=== PATIENT | male | born 1965 | race Caucasian/White ===

== ENCOUNTER 2016-06-13 15:22 | Inpatient (IN) | payer OTHER ==
[~2016-06-13] VITALS: Ht 182.9 cm; Wt 69.0 kg
[2016-06-13] MEDS ORDERED: GUAIFENESIN AN118 ML GT (17:12)
[2016-06-13] MEDS ORDERED: LIDOCAINE AND P1 CRE TOP (17:12)
[2016-06-13] MEDS ORDERED: ACETAMINOP160 MG/54 PO (17:12)
[2016-06-13] MEDS ORDERED: DULCOLAX10 M1 RC (17:13)
[2016-06-13] MEDS ORDERED: MOM PO (17:13)
[2016-06-13] MEDS ORDERED: FLEET ENEMA135 ML RC (17:13)
[2016-06-13] MEDS ORDERED: WEL75 PO (17:14)
[2016-06-13] MEDS ORDERED: NOR10 PO (17:14)
[2016-06-13] MEDS ORDERED: LISINOPRIL40 MG PO (17:14)
[2016-06-13] MEDS ORDERED: AMIODARONE HCL200 MG GT (17:15)
[2016-06-13] MEDS ORDERED: TOPROL XL25 MG PO (17:15)
[2016-06-13 17:17] LABS: microscopic required? YES; urine erythrocyte 1+ (NEGATIVE)
[2016-06-13 17:17] LABS: PLATELET COUNT 262 x10^3mcL (130-400)
[2016-06-13] MEDS ORDERED: METHOCARBAMOL750 MG GT (17:19)
[2016-06-13] MEDS ORDERED: ATORVASTATIN CA40 M1 PO (17:19)
[2016-06-13 17:20] LABS: RED CELL DISTRIBUTION WIDTH 16.6 % (11.5-14.5)
[2016-06-13 17:21] LABS: CALCIUM 8.7 mg/dL (8.5-10.1); CARBON DIOXIDE 31.9 mmol/L (21-32); CHLORIDE SERUM 96 mmol/L (98-107); CREATININE SERUM 0.8 mg/dL (0.7-1.3); GFR1 > 60 mL/min; GLUCOSE SERUM 220 mg/dL (74-106); POTASSIUM SERUM 4.3 mmol/L (3.5-5.1); SODIUM SERUM 137 mmol/L (136-145)
[2016-06-13 17:27] LABS: ALKALINE PHOSPHATASE 161 U/L (46-116); ALT/SGPT 27 U/L (16-63); AST/SGOT 33 U/L (15-37); BILIRUBIN TOTAL 0.2 mg/dL (0.20-1.00); TOTAL PROTEIN, SERUM 6.6 g/dL (6.4-8.2)
[2016-06-13 17:30] LABS: ALBUMIN 2.2 g/dL (3.4-5.0); CHOLESTEROL 108 mg/dL (<200); HDL CHOLESTEROL 30 mg/dL (40-60)
[2016-06-13 17:44] LABS: BAND NEUTROPHIL 10 % (0-10); METAMYELOCTE 1 % (0-2); MONOCYTE 2 % (0-7); SEGMENTED NEUTROPHILS 86 % (37-75)
[2016-06-13 17:47] LABS: rbc morphology (normal/abnorm) ABNORMAL (NORMAL)
[2016-06-13 17:48] LABS: PLATELET MORPHOLOGY FEW LARGE PLATELETS
[2016-06-13 19:16] VITALS: BP 109/74
[2016-06-13 19:20] VITALS: Ht 182.9 cm; Wt 69.0 kg
[2016-06-13 19:44] LABS: T3 TOTAL 0.44 ng/mL
[2016-06-13 19:46] LABS: FREE T4 0.83 ng/dL (0.76-1.46); FREE THYROXINE INDEX 2.4 ug/dL (1.4-4.5); T4(THYROXINE) 6.6 ug/dL (4.7-13.3)
[2016-06-13 19:59] LABS: CHOLESTEROL/HDL RATIO 3.6
[2016-06-13 21:36] VITALS: BP 113/76
[2016-06-14 00:36] VITALS: BP 112/75
[2016-06-14 06:08] VITALS: BP 119/71
[2016-06-14 06:53] LABS: PLATELET COUNT 237 x10^3mcL (130-400)
[2016-06-14 07:03] LABS: BASOPHIL % 0 % (0-2); RED CELL DISTRIBUTION WIDTH 15.8 % (11.5-14.5)
[2016-06-14 07:06] LABS: CALCIUM 8.6 mg/dL (8.5-10.1); CARBON DIOXIDE 32.2 mmol/L (21-32); CHLORIDE SERUM 102 mmol/L (98-107); CREATININE SERUM 0.6 mg/dL (0.7-1.3); GFR1 > 60 mL/min; GLUCOSE SERUM 110 mg/dL (74-106); MAGNESIUM 1.8 mg/dL (1.8-2.4); PHOSPHOROUS 3.8 mg/dL (2.5-4.9); POTASSIUM SERUM 3.6 mmol/L (3.5-5.1); SODIUM SERUM 138 mmol/L (136-145)
[2016-06-14 10:16] VITALS: BP 106/72
[2016-06-14 13:00] VITALS: BP 121/82
[2016-06-14 18:27] VITALS: BP 108/74
[2016-06-14 21:33] VITALS: BP 132/80
[2016-06-15 05:54] VITALS: BP 115/75
[2016-06-15 06:17] LABS: BASOPHIL % 0.2 % (0-2); PLATELET COUNT 201 x10^3mcL (130-400)
[2016-06-15 06:23] LABS: CALCIUM 8.2 mg/dL (8.5-10.1); CARBON DIOXIDE 32.3 mmol/L (21-32); CHLORIDE SERUM 104 mmol/L (98-107); CREATININE SERUM 0.5 mg/dL (0.7-1.3); GFR1 > 60 mL/min; GLUCOSE SERUM 141 mg/dL (74-106); MAGNESIUM 1.6 mg/dL (1.8-2.4); POTASSIUM SERUM 3.6 mmol/L (3.5-5.1); SODIUM SERUM 138 mmol/L (136-145)
[2016-06-15 06:43] LABS: RED CELL DISTRIBUTION WIDTH 15.9 % (11.5-14.5)
[2016-06-15 10:39] VITALS: BP 137/84
[2016-06-15 15:21] VITALS: BP 133/85
[2016-06-15 18:27] VITALS: BP 135/87
[2016-06-15 18:29] VITALS: BP 135/87
[2016-06-15 22:19] VITALS: BP 133/86
[2016-06-16 06:03] LABS: BASOPHIL % 0.3 % (0-2); PLATELET COUNT 219 x10^3mcL (130-400)
[2016-06-16 06:33] VITALS: BP 133/86
[2016-06-16 06:33] LABS: RED CELL DISTRIBUTION WIDTH 15.7 % (11.5-14.5)
[2016-06-16 06:39] LABS: CALCIUM 8.3 mg/dL (8.5-10.1); CARBON DIOXIDE 29.2 mmol/L (21-32); CHLORIDE SERUM 99 mmol/L (98-107); CREATININE SERUM 0.5 mg/dL (0.7-1.3); GFR1 > 60 mL/min; GLUCOSE SERUM 133 mg/dL (74-106); MAGNESIUM 1.6 mg/dL (1.8-2.4); PHOSPHOROUS 3.4 mg/dL (2.5-4.9); POTASSIUM SERUM 3.6 mmol/L (3.5-5.1); SODIUM SERUM 133 mmol/L (136-145)
[2016-06-16 08:51] VITALS: BP 125/84
[2016-06-16 12:32] LABS: APPEARANCE CSF CLEAR; COLOR CSF COLORLESS; WBC CSF 0 /cumm (0-5)
[2016-06-16 12:34] LABS: RBC CSF 1 /cumm (0)
[2016-06-16 12:35] LABS: TOTAL PROTEIN CSF 29 mg/dL (15-45)
[2016-06-16 18:53] VITALS: BP 1336/88
[2016-06-16 20:30] VITALS: BP 137/77
[2016-06-17 06:56] LABS: PLATELET COUNT 290 x10^3mcL (130-400)
[2016-06-17 07:00] LABS: BASOPHIL % 0 % (0-2); RED CELL DISTRIBUTION WIDTH 15.7 % (11.5-14.5)
[2016-06-17 07:10] LABS: CALCIUM 8.6 mg/dL (8.5-10.1); CARBON DIOXIDE 29.5 mmol/L (21-32); CHLORIDE SERUM 98 mmol/L (98-107); CREATININE SERUM 0.6 mg/dL (0.7-1.3); GFR1 > 60 mL/min; GLUCOSE SERUM 150 mg/dL (74-106); MAGNESIUM 1.6 mg/dL (1.8-2.4); PHOSPHOROUS 3.6 mg/dL (2.5-4.9); POTASSIUM SERUM 3.6 mmol/L (3.5-5.1); SODIUM SERUM 136 mmol/L (136-145)
[2016-06-17 09:11] VITALS: BP 129/85
[2016-06-17 17:26] VITALS: BP 140/83
[2016-06-17 21:31] VITALS: BP 124/76
[2016-06-18 06:39] VITALS: BP 125/80
[2016-06-18 06:42] LABS: BASOPHIL % 0.2 % (0-2); PLATELET COUNT 316 x10^3mcL (130-400)
[2016-06-18 06:55] LABS: CALCIUM 8.3 mg/dL (8.5-10.1); CARBON DIOXIDE 29.1 mmol/L (21-32); CHLORIDE SERUM 99 mmol/L (98-107); CREATININE SERUM 0.6 mg/dL (0.7-1.3); GFR1 > 60 mL/min; GLUCOSE SERUM 119 mg/dL (74-106); MAGNESIUM 1.6 mg/dL (1.8-2.4); PHOSPHOROUS 3.3 mg/dL (2.5-4.9); POTASSIUM SERUM 3.3 mmol/L (3.5-5.1); SODIUM SERUM 137 mmol/L (136-145)
[2016-06-18 07:18] LABS: RED CELL DISTRIBUTION WIDTH 16.3 % (11.5-14.5)
[2016-06-18 09:07] VITALS: BP 124/84
[2016-06-18 17:04] VITALS: BP 140/84
[2016-06-18 21:28] VITALS: BP 117/78
[2016-06-19 06:32] LABS: BASOPHIL % 0.1 % (0-2); PLATELET COUNT 354 x10^3mcL (130-400)
[2016-06-19 06:34] VITALS: BP 122/73
[2016-06-19 06:37] LABS: RED CELL DISTRIBUTION WIDTH 16.1 % (11.5-14.5)
[2016-06-19 07:09] LABS: CALCIUM 8.6 mg/dL (8.5-10.1); CARBON DIOXIDE 31.5 mmol/L (21-32); CHLORIDE SERUM 100 mmol/L (98-107); CREATININE SERUM 0.7 mg/dL (0.7-1.3); GFR1 > 60 mL/min; GLUCOSE SERUM 132 mg/dL (74-106); MAGNESIUM 1.8 mg/dL (1.8-2.4); PHOSPHOROUS 3.4 mg/dL (2.5-4.9); POTASSIUM SERUM 3.6 mmol/L (3.5-5.1); SODIUM SERUM 139 mmol/L (136-145)
[2016-06-19 09:16] VITALS: BP 101/63
[2016-06-19 17:23] VITALS: BP 154/85
[2016-06-19 21:02] VITALS: BP 128/75
[2016-06-20 06:19] VITALS: BP 122/77
[2016-06-20 07:21] LABS: BASOPHIL % 0.2 % (0-2); PLATELET COUNT 419 x10^3mcL (130-400); RED CELL DISTRIBUTION WIDTH 16.9 % (11.5-14.5)
[2016-06-20 07:37] LABS: CALCIUM 8.6 mg/dL (8.5-10.1); CARBON DIOXIDE 30.8 mmol/L (21-32); CHLORIDE SERUM 101 mmol/L (98-107); CREATININE SERUM 0.7 mg/dL (0.7-1.3); GFR1 > 60 mL/min; GLUCOSE SERUM 138 mg/dL (74-106); MAGNESIUM 1.8 mg/dL (1.8-2.4); PHOSPHOROUS 2.9 mg/dL (2.5-4.9); POTASSIUM SERUM 3.6 mmol/L (3.5-5.1); SODIUM SERUM 139 mmol/L (136-145)
[2016-06-20 09:11] VITALS: BP 152/91
[2016-06-20 09:30] VITALS: BP 152/91
[2016-06-20 14:22] VITALS: BP 152/91
[2016-06-20 18:00] VITALS: BP 127/83
[2016-06-20 21:37] VITALS: BP 131/71
[2016-06-21 06:08] VITALS: BP 138/70
[2016-06-21 06:25] LABS: BASOPHIL % 0.1 % (0-2)
[2016-06-21 06:36] LABS: PLATELET COUNT 473 x10^3mcL (130-400); RED CELL DISTRIBUTION WIDTH 17.1 % (11.5-14.5)
[2016-06-21 06:52] LABS: CALCIUM 8.5 mg/dL (8.5-10.1); CARBON DIOXIDE 29.9 mmol/L (21-32); CHLORIDE SERUM 102 mmol/L (98-107); CREATININE SERUM 0.8 mg/dL (0.7-1.3); GFR1 > 60 mL/min; GLUCOSE SERUM 120 mg/dL (74-106); MAGNESIUM 1.8 mg/dL (1.8-2.4); PHOSPHOROUS 2.9 mg/dL (2.5-4.9); POTASSIUM SERUM 3.6 mmol/L (3.5-5.1); SODIUM SERUM 140 mmol/L (136-145)
[2016-06-21 10:32] VITALS: BP 146/89
[2016-06-21 13:16] VITALS: BP 108/70
[2016-06-21 17:28] VITALS: BP 104/64
[2016-06-21 20:46] VITALS: BP 141/84
[2016-06-22 05:06] VITALS: BP 121/79
[2016-06-22 06:18] LABS: BASOPHIL % 0.3 % (0-2)
[2016-06-22 06:30] LABS: CALCIUM 8.7 mg/dL (8.5-10.1); CARBON DIOXIDE 34.3 mmol/L (21-32); CHLORIDE SERUM 103 mmol/L (98-107); CREATININE SERUM 0.6 mg/dL (0.7-1.3); GFR1 > 60 mL/min; GLUCOSE SERUM 116 mg/dL (74-106); MAGNESIUM 1.7 mg/dL (1.8-2.4); PHOSPHOROUS 3.8 mg/dL (2.5-4.9); POTASSIUM SERUM 3.3 mmol/L (3.5-5.1); SODIUM SERUM 145 mmol/L (136-145)
[2016-06-22 07:00] LABS: PLATELET COUNT 458 x10^3mcL (130-400); RED CELL DISTRIBUTION WIDTH 17.1 % (11.5-14.5)
[2016-06-22 17:03] VITALS: BP 108/69
[2016-06-22 22:25] VITALS: BP 135/84
[2016-06-23 06:10] LABS: CALCIUM 8.5 mg/dL (8.5-10.1); CARBON DIOXIDE 31.2 mmol/L (21-32); CHLORIDE SERUM 104 mmol/L (98-107); CREATININE SERUM 0.5 mg/dL (0.7-1.3); GFR1 > 60 mL/min; GLUCOSE SERUM 107 mg/dL (74-106); MAGNESIUM 1.9 mg/dL (1.8-2.4); PHOSPHOROUS 2.8 mg/dL (2.5-4.9); POTASSIUM SERUM 3.5 mmol/L (3.5-5.1); SODIUM SERUM 141 mmol/L (136-145)
[2016-06-23 06:13] VITALS: BP 122/78
[2016-06-23 06:25] LABS: BASOPHIL % 0.4 % (0-2)
[2016-06-23 06:49] LABS: PLATELET COUNT 432 x10^3mcL (130-400); RED CELL DISTRIBUTION WIDTH 16.4 % (11.5-14.5)
[2016-06-23 10:40] VITALS: BP 122/78
[2016-06-23 11:20] VITALS: BP 125/79
[2016-06-23 17:00] VITALS: BP 121/72
[2016-06-23 20:30] VITALS: BP 114/72
[2016-06-24 05:21] VITALS: BP 114/72
[2016-06-24 05:34] VITALS: BP 141/88
[2016-06-24 09:47] VITALS: BP 137/83
[2016-06-24 16:53] VITALS: BP 119/73
[2016-06-24 21:54] VITALS: BP 130/78
[2016-06-25 06:09] VITALS: BP 126/85
[2016-06-25 09:22] VITALS: BP 129/80
[2016-06-25 12:56] LABS: CALCIUM 8.8 mg/dL (8.5-10.1); CARBON DIOXIDE 27.7 mmol/L (21-32); CHLORIDE SERUM 102 mmol/L (98-107); CREATININE SERUM 0.5 mg/dL (0.7-1.3); GFR1 > 60 mL/min; GLUCOSE SERUM 136 mg/dL (74-106); POTASSIUM SERUM 3.2 mmol/L (3.5-5.1); SODIUM SERUM 141 mmol/L (136-145)
[2016-06-25 15:05] VITALS: BP 140/93
[2016-06-25 16:55] VITALS: BP 126/85
[2016-06-25 21:17] VITALS: BP 133/84
[2016-06-26 05:55] VITALS: BP 125/81
[2016-06-26 08:43] VITALS: BP 122/85
[2016-06-26 17:21] VITALS: BP 132/85
[2016-06-26 21:49] VITALS: BP 140/89
[2016-06-27] VITALS (7 sets, daily range): BP systolic 136–148; BP diastolic 85–98
[2016-06-28 06:20] VITALS: BP 138/95
[2016-06-28 10:00] VITALS: BP 147/107
[2016-06-28 13:28] VITALS: BP 138/94
[2016-06-28 17:21] VITALS: BP 137/89
[2016-06-28 21:22] VITALS: BP 140/93
[2016-06-29 05:46] VITALS: BP 140/90
[2016-06-29 09:13] VITALS: BP 123/85
[2016-06-29 14:04] VITALS: BP 129/81
[2016-06-29 18:44] VITALS: BP 114/79
[2016-06-29 22:00] VITALS: BP 99/71
[2016-06-29 22:30] VITALS: BP 103/67; BP 106/66
[2016-06-30] VITALS (7 sets, daily range): BP systolic 79–113; BP diastolic 42–74
[2016-07-01 00:30] VITALS: BP 73/45
[2016-07-01 01:52] VITALS: BP 73/42
[2016-07-01 02:51] VITALS: BP 71/40
[2016-07-01 04:13] VITALS: BP 69/39
[2016-07-01 05:35] VITALS: BP 88/48
[2016-07-01 05:48] VITALS: BP 88/48
== END 2016-07-01 14:45 | disposition expired | DRG 871 ==
LOC: ED 15:22 → MU 18:01 → DU 18:01 → MU 06-15 09:59 → DU 06-19 17:38 → MU 06-21 09:21 → DU 06-28 06:26
PROVIDERS: Emergency Medicine; Family Medicine; ADMIT Family Medicine
DX: A41.9 Sepsis, unspecified organism (principal); J69.0 Pneumonitis due to inhalation of food and vomit; N17.0 Acute kidney failure with tubular necrosis; E43 Unspecified severe protein-calorie malnutrition; I63.9 Cerebral infarction, unspecified; N39.0 Urinary tract infection, site not specified; E87.1 Hypo-osmolality and hyponatremia; J96.10 Chronic respiratory failure, unspecified whether with hypoxia or hypercapnia; G81.11 Spastic hemiplegia affecting right dominant side; D68.69 Other thrombophilia; E11.51 Type 2 diabetes mellitus with diabetic peripheral angiopathy without gangrene; N20.0 Calculus of kidney; D64.9 Anemia, unspecified; I10 Essential (primary) hypertension; E86.0 Dehydration; E83.42 Hypomagnesemia; E87.6 Hypokalemia; E02 Subclinical iodine-deficiency hypothyroidism; Z66 Do not resuscitate; Z93.1 Gastrostomy status; Z93.0 Tracheostomy status; Z74.01 Bed confinement status; Z51.5 Encounter for palliative care; Z68.20 Body mass index [BMI] 20.0-20.9, adult; Z87.820 Personal history of traumatic brain injury
CPT/HCPCS: 36600; 62272; 80307; 82962; 83880; 84439; 97110-GP; 97530-GP; A4628; J0132; J0295; J0713; J1100; J1200; J1644; J1815; J1885; J1940; J1956; J2060; J2150; J2270; J2405; J3260; J3475; J3480; J3490; J7030; J7620; Q0092